=== PATIENT | female | born 1965 | race Caucasian/White ===

== ENCOUNTER 2024-05-08 07:06 | Emergency (ER) | payer OTHER, SELFPAY ==
[2024-05-08 07:14] VITALS: BP 171/83; PULSE 52; TEMP 36.5; O2SAT 100; BMI 29.0
--- NOTE | 2024-05-08 07:18 | ED_ITS ---
HPI - General Adult 2 General: Chief complaint: Extremity Injury, Lower Stated complaint: Right swelling, pain Time Seen by Provider: 05/08/24 07:10 History of Present Illness: 59-year-old female who presents to the e mergency room with complaints of right knee pain. Is been going on for about a week. She been doing some new exercises that seem to aggravate it. She was seen at a local primary care clinic had x-rays done and reported to her as negative she was started on meloxicam and tramadol. She states the pain continued to give her difficulty but this morning is much better. She is able to bear full weight. She presents to the emergency room because when she was seen in the primary care clinic they had talked about getting an MRI if it does not improve since it is not completely resolved she was wanting to get the MRI in the emergency room today. Associated symptoms: Deny chest pain, dyspnea or rash Review of Systems 2 Const: Denies: fever(s) or chills Card: Denies: chest pain Resp: Denies: dyspnea Musc: Reports: joint pain and joint swelling; Denies: neck pain or back pain Skin/Breast: Denies: rash PFSH ED 2 PFSH: Medical History (Updated 05/08/24 @ 08:08 by Moses Segura DO) Hypothyroidism Physical Exam 2 Extremity: NARRATIVE EXTREMITY EXAM: Examination of the right knee mild joint effusion. Drawer and Lewis test are negative patient expresses extreme pain with first attempt but is not reproducible she refers to pain to the tibial tuberosity with direct palpation on this I was not able to reproduce the pain. She does not have any significant swelling in the no pain with compression of the calf Homans' sign negative Course 2 Vital Signs: Vital signs: Vital Signs Temperature 97.7 F 05/08/24 07:14 Pulse Rate 50 L 05/08/24 08:28 Respiratory Rate 18 05/08/24 08:28 Blood Pressure 171/83 05/08/24 07:14 Pulse Oximetry 98 05/08/24 08:28 Oxygen Delivery Me thod Room Air 05/08/24 07:14 MDM - General Adult Medical Decision Making X-ray does not show any acute fracture there is no swelling suggestive of DVT patient is not tachycardic or hypoxic. Suspect this is musculoskeletal. Knee immobilizer and crutches. Follow-up with orthopedics. Lab Data 05/08/24 07:23 05/08/24 07:23 Radiology Impressions Knee X-Ray 05/08/24 07:30 IMPRESSION: Mild soft tissue edema. Otherwise negative. Laboratory Results WBC 10.15 10^3/uL (3.29-11.43) 05/08/24 07:23 RBC 4.36 10^6/uL (3.85-5.65) 05/08/24 07:23 Hgb 13.30 g/dL (11.27-16.99) 05/08/24 07:23 Hct 39.9 % (36-47) 05/08/24 07:23 MCV 91.5 fl (85-98) 05/08/24 07:23 MCH 30.5 pg (27-33) 05/08/24 07:23 MCHC 33.3 g/dL (30-55) 05/08/24 07:23 RDW 12.1 % (12.1-15.1) 05/08/24 07:23 Plt Count 287 10^3/cmm (157-399) 05/08/24 07:23 MPV 10.0 fL (7.4-10.4) 05/08/24 07:23 Neut % (Auto) 81.0 % 05/08/24 07:23 Lymph % (Auto) 11.2 % 05/08/24 07:23 Nash % (Auto) 6.5 % 05/08/24 07:23 Eos % (Auto) 0.2 % 05/08/24 07:23 Baso % (Auto) 0.5 % 05/08/24 07:23 Neut # (Auto) 8.22 10^3/uL (1.8-7.7) H 05/08/24 07:23 Lymph # (Auto) 1.1 10^3/uL (0.8-4.8) 05/08/24 07:23 Nash # (Auto) 0.7 10^3/uL (0.2-0.9) 05/08/24 07:23 Eos # (Auto) 0.0 10^3/uL (0.0-0.8) 05/08/24 07:23 Baso # (Auto) 0.1 10^3/uL (0.0-0.1) 05/08/24 07:23 Nucleated RBC % (auto) 0 % 05/08/24 07:23 Nucleated RBCs # 0.0 /100WBC 05/08/24 07:23 Sodium 138 mmol/L (136-145) 05/08/24 07:23 Potassium 4.3 mmol/L (3.5-5.1) 05/08/24 07:23 Chloride 100 mmol/L (98-107) 05/08/24 07:23 Carbon Dioxide 26 mmol/L (22-29) 05/08/24 07:23 Anion Gap 16.3 (5-19) 05/08/24 07:23 BUN 10 mg/dL (6-20) 05/08/24 07:23 Creatinine 0.8 mg/dL (0.5-0.9) 05/08/24 07:23 GFR Calculation 73.7 mL/min (90-130) L 05/08/24 07:23 Glucose 109 mg/dL (65-115) 05/08/24 07:23 Calculated Osmolality 286 mOsm/kg (285-295) 05/08/24 07:23 Calcium 10.4 mg/dL (8.5-10.5) 05/08/24 07:23 Total Bilirubin 0.6 mg/dL (0.15-1.2) 05/08/24 07:23 AST 21 U/L (0-32) 05/08/24 07:23 ALT 17 U/L (0-33) 05/08/24 07:23 Alkaline Phosphatase 97 U/L (35-105) 05/08/24 07:23 Total Protein 8.2 g/dL (6.6-8.7) 05/08/24 07:23 Albumin 4.7 g/dL (3.5-5.2) 05/08/24 07:23 Globulin 3.5 g/dL (1.3-4.6) 05/08/24 07:23 All radiology interpretation(s) finalized by discharge Discharge Plan Discharge Patient Disposition: Home Clinical Impression: Knee pain, right Condition: Stable Prescriptions: New diclofenac sodium 75 mg tablet,delayed release (DR/EC) 75 mg PO Q12H PRN (Reason: pain) Qty: 20 0RF Discharge Orders: Discharge ED (Routine); Ordered 05/08/24 Ordered By: Moses Segura Discharge Diet: Usual diet Discharge Activity: Limit activity as instructed Patient Instructions: Opioid Safety, Pain Management Activity Restrictions/Additional Instructions: Thank you for choosing [facility] for your healthcare needs today. It is very important that you follow up as instructed or that you return to the Emergency Department should you have concerns or if your condition changes or worsens in any way. You were seen in the emergency room for right knee pain. X-rays did not show any acute fractures or laboratory tests were normal. Will make arrangements for you to have a follow-up with orthopedics. Recommend holding it and Aloxi cam and trying diclofenac 1 every 12 hours as needed. Avoid exercise and stressing the knee. Recommend nonweightbearing in the knee until evaluated by orthopedics Coding Level of Care Code ED [employer] for Phyllis Caicedo
[2024-05-08 07:29] LABS: Basophils # 0.1 10^3/uL (0.0-0.1); Basophils % 0.5 %; Eosinophils % 0.2 %; Hematocrit 39.9 % (36-47); Lymphocytes # 1.1 10^3/uL (0.8-4.8); Lymphocytes % 11.2 %; Mean Corpuscular HGB Conc 33.3 g/dL (30-55); Mean Corpuscular Hemoglobin 30.5 pg (27-33); Mean Corpuscular Volume 91.5 fl (85-98); Monocytes # 0.7 10^3/uL (0.2-0.9); Monocytes % 6.5 %; Neutrophils # 8.22 10^3/uL (1.8-7.7); Nucleated Red Blood Cells % 0 %; Platelet Count 287 10^3/cmm (157-399); Red Blood Count 4.36 10^6/uL (3.85-5.65); Red Cell Distribution Width 12.1 % (12.1-15.1); White Blood Count 10.15 10^3/uL (3.29-11.43)
--- NOTE | 2024-05-08 07:30 | XR_ITS ---
WS: [id number] RIGHT KNEE: 3 VIEW(S) TECHNIQUE: AP, oblique(s) and lateral. HISTORY: pain COMPARISON: 05/02/2024 No fracture or dislocation. No joint space narrowing or osteophytes. No joint effusion. Mild soft tissue edema along the anterior knee. XR/XR knee RT 3V* 22022 IMPRESSION: Mild soft tissue edema. Otherwise negative.
[2024-05-08 07:47] LABS: Alanine Aminotransferase 17 U/L (0-33); Albumin Level 4.7 g/dL (3.5-5.2); Alkaline Phosphatase 97 U/L (35-105); Anion Gap 16.3 (5-19); Aspartate Amino Transferase 21 U/L (0-32); Blood Urea Nitrogen 10 mg/dL (6-20); Calcium 10.4 mg/dL (8.5-10.5); Carbon Dioxide 26 mmol/L (22-29); Chloride 100 mmol/L (98-107); Creatinine Clr Calc Pharmacy 82.5737; Globulin 3.5 g/dL (1.3-4.6); Glomerular Filtration Rate 73.7 mL/min (90-130); Glucose 109 mg/dL (65-115); Osmolality Calculated 286 mOsm/kg (285-295); Potassium 4.3 mmol/L (3.5-5.1); Sodium 138 mmol/L (136-145); Total Bilirubin 0.6 mg/dL (0.15-1.2); Total Protein 8.2 g/dL (6.6-8.7)
[2024-05-08 08:28] VITALS: PULSE 50; RESP 18; O2SAT 98
--- NOTE | 2024-05-08 08:44 | DCPLANNER ---
Patient was seen in ER today for RT knee pain- Message sent to Ortho for follow-
== END 2024-05-08 08:29 | disposition home or self-care (01) ==
PROVIDERS: Emergency Provider Family Medicine
DX: M25.561 Pain in right knee (principal)
CPT/HCPCS: 29530; 36415; 73562; 80053; 85025; 99284; E0114

== ENCOUNTER → 2024-05-11 09:01 | Outpatient (BNVA) | payer OTHER, SELFPAY | PROVIDERS: Visit Provider Nurse Practitioner | DX: M25.561 Pain in right knee (principal); S83.206A Unspecified tear of unspecified meniscus, current injury, right knee, initial encounter; X58.XXXA Exposure to other specified factors, initial encounter | CPT/HCPCS: 73560; 73565 ==

== ENCOUNTER 2024-05-11 10:24 | Outpatient (CLI) | payer OTHER, SELFPAY | END 2024-05-11 10:25 | disposition home or self-care (01) | LOC: SPT 10:25 | PROVIDERS: Visit Provider Nurse Practitioner | DX: Z46.89 Encounter for fitting and adjustment of other specified devices (principal); M25.561 Pain in right knee | CPT/HCPCS: L1812 ==